=== PATIENT | female | born 1990 | race Caucasian/White ===

== ENCOUNTER 2016-07-11 13:59 | Emergency (ER) | payer MEDICAID, OTHER ==
[2016-07-11 14:42] LABS: BASO % 0.4 % (0.0-1.0); EOS # 0.8 K/mm3 (0.0-0.50); EOS % 12.8 % (0.0-3.0); LARGE UNSTAINED CELL # 0.1 K/mm3 (0.0-0.4); LARGE UNSTAINED CELL % 1.6 % (0.0-4.0); LYMPH # 2.5 K/mm3 (1.5-6.5); LYMPH % 39.3 % (24.0-44.0); MEAN CORPUSCULAR HEMOGLOBIN 29.1 pg (27.0-33.0); MEAN CORPUSCULAR HGB CONC 33.3 g/dl (32.0-36.5); MEAN CORPUSCULAR VOLUME 87.5 fl (80.0-96.0); MONO # 0.2 K/mm3 (0.0-0.8); NEUTROPHILS # 2.6 K/mm3 (1.8-7.7); PLATELET COUNT, AUTOMATED 262 k/mm3 (150-450); RED CELL DISTRIBUTION WIDTH 12.1 % (11.5-14.5); WHITE BLOOD COUNT 6.1 K/mm3 (4.0-10.0)
[2016-07-11 14:59] LABS: ALBUMIN/GLOBULIN RATIO 1.38 (1.00-1.93); ALKALINE PHOSPHATASE 93 U/L (45-117); ALT/SGPT 23 U/L (12-78); AMYLASE 38 U/L (25-115); ANION GAP 5 MEQ/L (8-16); AST/SGOT 12 U/L (15-37); BILIRUBIN,DIRECT < 0.1 MG/DL (0.0-0.2); BILIRUBIN,TOTAL 0.4 MG/DL (0.2-1.0); BLOOD UREA NITROGEN 11 MG/DL (7-18); CARBON DIOXIDE LEVEL 32 MEQ/L (21-32); CHLORIDE LEVEL 105 MEQ/L (98-107); CREATININE FOR GFR 0.83 MG/DL (0.55-1.02); GLOMERULAR FILTRATION RATE > 60.0 (>60); GLUCOSE, FASTING 118 MG/DL (70-105); POTASSIUM SERUM 3.8 MEQ/L (3.5-5.1); SODIUM LEVEL 142 MEQ/L (136-145); TOTAL PROTEIN 6.9 GM/DL (6.4-8.2)
--- NOTE | 2016-07-11 15:42 | EDDOCDS ---
Physician Documentation [facility] Name: Maria Del Rosario Condon Age: 25 yrs Sex: Female : 1990 Arrival Date: 07/11/2016 Time: 13:59 Bed PD Private MD: Other - Complete Info On Cds Disposition: 07/11/16 15:27 Discharged to Home/Self Care. Impression: Upper abdominal pain, unspecified - gastritis vs biliary colic. - Condition is Stable. - Discharge Instructions: Biliary Colic, Gastritis, Adult. - Prescriptions for omeprazole 20 mg Oral capsule,delayed release(DR/EC) - take 1 capsule by ORAL route once daily for 30 days; 30 capsule. Carafate 1 gram Oral Tablet - take 1 tablet by ORAL route 4 times per day take on an empty stomach, beginning on waking and last dose at bedtime; 20 tablet. ZOFRAN ODT 4 mg Oral - dissolve 1 tablet by ORAL route every 8 hours As needed do not chew, do not swallow whole; 10 tablet. - Medication Reconciliation, Local Pharmacy Hours form. - Follow up: Private Physician; When: Call to arrange an appointment; Reason: Recheck today's complaints. Follow up: Emergency Department; When: As needed; Reason: Fever > 102F, Worsening of conditions. - Problem is new. - Symptoms have improved. Historical: - Allergies: no known allergies; - Home Meds: 1. Lexapro 10 mg Oral tab 1 tab once daily - PMHx: Depression; - PSHx: right knee; - Social history: Smoking status: Patient uses tobacco products, current some day smoker. No barriers to communication noted, The patient speaks fluent Lebanese, Speaks appropriately for age. - Family history: Not pertinent. - : The pt / caregiver states he / she is not on anticoagulants. Home medication list is obtained from the patient. - Exposure Risk Screening:: None identified. 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 2 in. (157.48 cm) (R); 15:42 BP 132 / 78; Pulse 68; Resp 18; Temp 97(T); Pulse Ox 99% on R/A; Pain 0/10; rs3 14:01 Body Mass Index 39.32 (97.52 kg, 157.48 cm) elp MDM: 14:15 Misc Documentation Liaison Order ordered. ar2 14:16 Amylase Ordered. EDMS 14:16 Basic Metabolic Profile Ordered. EDMS 14:16 CBC with Diff Ordered. EDMS 14:17 Lipase Ordered. EDMS 14:17 Liver Profile Ordered. EDMS 14:17 NOTHING BY MOUTH+DIET ordered. EDMS 14:20 Financial registration complete. gb 14:21 [facility] Payment Agreement was scanned into [employer] and attached to record. gb 14:52 CBC with Diff Reviewed. ar2 15:08 [facility] Liaison Order complete. jml1 15:10 Basic Metabolic Profile Reviewed. ar2 15:10 Liver Profile Reviewed. ar2 15:10 Amylase Reviewed. ar2 15:10 Lipase Reviewed. ar2 Signatures: Dispatcher MedHost EDMS Christiana Presley, Reg Reg gb Clifford Lezama, RN RN mlb1 Melissa VazquezRN RN ck1 Krishna Pan, PA-C PA-C ar2 Umu Spencer,RN RN rs3 Owen Keane jml1 The chart was reviewed and I authenticate all verbal orders and agree with the evaluation and treatment provided.Attachments: 14:21 [facility] Payment Agreement gb MTDD
--- NOTE | 2016-07-11 15:42 | EDDOCDS ---
Nurse's Notes [facility] Name: Maria Del Rosario Condon Age: 25 yrs Sex: Female : 1990 Arrival Date: 07/11/2016 Time: 13:59 Bed PD Private MD: Other - Complete Info On Cds Diagnosis: Upper abdominal pain, unspecified-gastritis vs biliary colic Presentation: 07/11 14:03 Presenting complaint: Patient states: Not tolerating solids over the past three weeks, mlb1 abdominal pain after eating. Adult Sepsis Screening: The patient does not have new or worsening altered mentation. Patient's respiratory rate is less than 22. Systolic blood pressure is greater than 100. Patient has a qSOFA score of 0- Negative Sepsis Screen. Suicide/Homicide risk assessment- the patient denies having any suicidal and/or homicidal ideations and does not present with any other emotional, behavioral or mental health complaints. Status: Patient is not a customer service representative teller or dependent. Transition of care: patient was not received from another setting of care. 14:03 Acuity: DAYANA Level 3 mlb1 14:03 Method Of Arrival: Walkin/Carried/Asstd mlb1 Triage Assessment: 14:04 General: Appears in no apparent distress, comfortable, Behavior is appropriate for age, mlb1 cooperative. Pain: Denies pain. Pt Declines HIV testing. GI: Reports nausea. 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 Lexapro 10 mg Oral tab 1 tab once daily - PMHx: Depression; - PSHx: right knee; - Social history: Smoking status: Patient uses tobacco products, current some day smoker. No barriers to communication noted, The patient speaks fluent Bahraini, Speaks appropriately for age. - Family history: Not pertinent. - : The pt / caregiver states he / she is not on anticoagulants. Home medication list is obtained from the patient. - Exposure Risk Screening:: None identified. Screenin:25 Screening information is obtained from the patient. Fall risk: No risks identified. ck1 Assistance ADL's: requires no assistance with activities of daily living. Abuse/DV Screen: The patient / caregiver reports he/she is: not in a situation that causes fear, pain or injury. Nutritional screening: No deficits noted. Advance Directives: Currently, there is no health care proxy. home support is adequate. Assessment: 14:25 General: Appears in no apparent distress, comfortable, Behavior is appropriate for age, ck1 cooperative. Pain: Location: abdomen Pain At worst was 7 out of 10 on a pain scale. Aggravated by eating. Respiratory: Respiratory effort is unlabored, Respiratory pattern is regular, symmetrical. GI: Abdomen is non- distended Bowel sounds present X 4 quads. Abd is soft and non tender X 4 quads. Reports nausea, vomiting. Derm: Skin is intact, is healthy with good turgor, Skin is pink, warm & dry. Vital Signs: 14:01 BP 133 / 68; Pulse 62; Resp 18; Temp 98.1(O); Pulse Ox 100% on R/A; Weight 97.52 kg elp (R); Height 5 ft. 2 in. (157.48 cm) (R); 15:42 BP 132 / 78; Pulse 68; Resp 18; Temp 97(T); Pulse Ox 99% on R/A; Pain 0/10; rs3 14:01 Body Mass Index 39.32 (97.52 kg, 157.48 cm) elp Vitals: 14:01 Log In Time: July 11, 2016 at 13:59. [facility] ED Course: 14:01 Patient visited by Bekah Sanchez PCA. elp 14:01 Other - Complete Info On Cds is Private Physician. elp 14:01 Patient moved to Waiting elp 14:02 Patient visited by Bekah Sanchez PCA. elp 14:02 Patient moved to Pre RCE elp 14:03 Patient visited by Clifford Lezama, DEBORAH. mlb1 14:04 Triage Initiated mlb1 14:05 Patient visited by Clifford Lezama, DEBORAH. mlb1 14:05 Krishna Pan [facility]-C [facility]. ar2 14:05 Pennie Shoemaker MD is Attending Physician. ar2 14:05 Patient visited by Krishna Pan PA-C. ar2 14:05 Patient moved to Triage 2 mlb1 14:21 [facility] Payment Agreement was scanned into [employer] and attached to record. gb 14:23 Patient moved to TR2 rs3 14:24 Amylase Sent. ck1 14:24 Basic Metabolic Profile Sent. ck1 14:24 CBC with Diff Sent. ck1 14:24 Lipase Sent. ck1 14:24 Liver Profile Sent. ck1 14:25 The patient / caregiver is instructed regarding the plan of care and ED course. ck1 14:28 Patient name changed from Maria Del Rosario\S\M\S\Cough\S\ to Maria Del Rosario\S\Flora\S\Cough. EDMS 14:45 Patient name changed from Maria Del Rosario\S\Flora\S\Cough\S\ to Maria Del Rosario\S\Flora\S\Taurus. elp 14:45 Patient name changed from Maria Del Rosario\S\Flora\S\Taurus\S\ to Maria Del Rosario\S\Flora\S\Cough. EDMS 14:46 Patient name changed from Maria Del Rosario\S\Flora\S\Cough\S\ to Maria Del Rosario\S\Flora\S\Taurus. elp 14:48 Patient moved to PD jp4 14:55 Patient visited by Melissa Vazquez RN. ck1 15:40 Patient has correct armband on for positive identification. rs3 15:41 No IV's were initiated during this patient's visit. No procedures done that require rs3 assistance. Order Results: Lab Order: Amylase; SPEC'M 07/11/16 14:23 Test: AMYLASE; Value: 38; Range: 25-115; Units: U/L; Status: F Lab Order: Basic Metabolic Profile; SPEC'M 07/11/16 14:23 Test: GLUCOSE, FASTING; Value: 118; Range: 70-105; Abnormal: Above high normal; Units: MG/DL; Status: F Test: BLOOD UREA NITROGEN; Value: 11; Range: 7-18; Units: MG/DL; Status: F Test: CREATININE FOR GFR; Value: 0.83; Range: 0.55-1.02; Units: MG/DL; Status: F Test: GLOMERULAR FILTRATION RATE; Value: > 60.0; Range: >60; Status: F Test: SODIUM LEVEL; Value: 142; Range: 136-145; Units: MEQ/L; Status: F Test: POTASSIUM SERUM; Value: 3.8; Range: 3.5-5.1; Units: MEQ/L; Status: F Test: CHLORIDE LEVEL; Value: 105; Range: 98-107; Units: MEQ/L; Status: F Test: CARBON DIOXIDE LEVEL; Value: 32; Range: 21-32; Units: MEQ/L; Status: F Test: ANION GAP; Value: 5; Range: 8-16; Abnormal: Below low normal; Units: MEQ/L; Status: F Test: CALCIUM LEVEL; Value: 9.0; Range: 8.5-10.1; Units: MG/DL; Status: F Test Note: ; Units are mL/min/1.73 m2 Chronic Kidney Disease Staging per NKF: Stage I & II GFR >=60 Normal to Mildly Decreased Stage III GFR 30-59 Moderately Decreased Stage IV GFR 15-29 Severely Decreased Stage V GFR <15 Very Little GFR Left ESRD GFR <15 on THERMAL INTELLIGENCE ANALYST Lab Order: CBC with Diff; SPEC'M 07/11/16 14:23 Test: WHITE BLOOD COUNT; Value: 6.1; Range: 4.0-10.0; Units: K/mm3; Status: F Test: RED BLOOD COUNT; Value: 4.37; Range: 4.00-5.40; Units: M/mm3; Status: F Test: HEMOGLOBIN; Value: 12.7; Range: 12.0-16.0; Units: g/dl; Status: F Test: HEMATOCRIT; Value: 38.2; Range: 36.0-47.0; Units: %; Status: F Test: MEAN CORPUSCULAR VOLUME; Value: 87.5; Range: 80.0-96.0; Units: fl; Status: F Test: MEAN CORPUSCULAR HEMOGLOBIN; Value: 29.1; Range: 27.0-33.0; Units: pg; Status: F Test: MEAN CORPUSCULAR HGB CONC; Value: 33.3; Range: 32.0-36.5; Units: g/dl; Status: F Test: RED CELL DISTRIBUTION WIDTH; Value: 12.1; Range: 11.5-14.5; Units: %; Status: F Test: PLATELET COUNT, AUTOMATED; Value: 262; Range: 150-450; Units: k/mm3; Status: F Test: NEUTROPHILS %; Value: 42.0; Range: 36.0-66.0; Units: %; Status: F Test: LYMPH %; Value: 39.3; Range: 24.0-44.0; Units: %; Status: F Test: MONO %; Value: 4.0; Range: 0.0-5.0; Units: %; Status: F Test: EOS %; Value: 12.8; Range: 0.0-3.0; Abnormal: Above high normal; Units: %; Status: F Test: BASO %; Value: 0.4; Range: 0.0-1.0; Units: %; Status: F Test: LARGE UNSTAINED CELL %; Value: 1.6; Range: 0.0-4.0; Units: %; Status: F Test: NEUTROPHILS #; Value: 2.6; Range: 1.8-7.7; Units: K/mm3; Status: F Test: LYMPH #; Value: 2.5; Range: 1.5-6.5; Units: K/mm3; Status: F Test: MONO #; Value: 0.2; Range: 0.0-0.8; Units: K/mm3; Status: F Test: EOS #; Value: 0.8; Range: 0.0-0.50; Abnormal: Above high normal; Units: K/mm3; Status: F Test: BASO #; Value: 0.0; Range: 0.0-0.2; Units: K/mm3; Status: F Test: LARGE UNSTAINED CELL #; Value: 0.1; Range: 0.0-0.4; Units: K/mm3; Status: F Lab Order: Lipase; SPEC' 07/11/16 14:23 Test: LIPASE; Value: 163; Range: 73-393; Units: U/L; Status: F Lab Order: Liver Profile; SPEC'M 07/11/16 14:23 Test: AST/SGOT; Value: 12; Range: 15-37; Abnormal: Below low normal; Units: U/L; Status: F Test: ALT/SGPT; Value: 23; Range: 12-78; Units: U/L; Status: F Test: ALKALINE PHOSPHATASE; Value: 93; Range: 45-117; Units: U/L; Status: F Test: BILIRUBIN,TOTAL; Value: 0.4; Range: 0.2-1.0; Units: MG/DL; Status: F Test: BILIRUBIN,DIRECT; Value: < 0.1; Range: 0.0-0.2; Units: MG/DL; Status: F Test: TOTAL PROTEIN; Value: 6.9; Range: 6.4-8.2; Units: GM/DL; Status: F Test: ALBUMIN; Value: 4.0; Range: 3.2-5.2; Units: GM/DL; Status: F Test: ALBUMIN/GLOBULIN RATIO; Value: 1.38; Range: 1.00-1.93; Status: F Outcome: 15:27 Discharge ordered by Provider. ar2 15:39 The following High Risk Discharge criteria are identified: None. Discharged to home rs3 with family. Condition: stable. Discharge instructions given to patient, Instructed on discharge instructions, follow up and referral plans. medication usage, Demonstrated understanding of instructions, medications, Pt was receptive of discharge instructions/ teaching. Prescriptions given X 3. No special radiology studies were completed. 15:41 Discharge Assessment: patient administered narcotics - no. Property :Personal rs3 belongings accompany Pt. 15:42 Patient left the ED. rs3 Signatures: Dispatcher MedHost EDMS Christiana Presley, Reg Reg Clifford Ashley RN RN mlb1 Melissa VazquezRN RN ck1 Krishna Pan PA-C PA-C ar2 Umu Spencer,RN RN rs3 Patcheldon, Bekah, OFFICE SUPPORT SPECIALIST OFFICE SUPPORT SPECIALIST elp Pignone, Ulices jp4 MTDD
--- NOTE | 2016-07-13 16:44 | EDDOCDS ---
Physician Documentation [facility] Name: Maria Del Rosario Condon Age: 25 yrs Sex: Female : 1990 Arrival Date: 07/11/2016 Time: 13:59 Bed PD Private MD: Other - Complete Info On Cds Disposition: 07/11/16 15:27 Discharged to Home/Self Care. Impression: Upper abdominal pain, unspecified - gastritis vs biliary colic. - Condition is Stable. - Discharge Instructions: Biliary Colic, Gastritis, Adult. - Prescriptions for omeprazole 20 mg Oral capsule,delayed release(DR/EC) - take 1 capsule by ORAL route once daily for 30 days; 30 capsule. Carafate 1 gram Oral Tablet - take 1 tablet by ORAL route 4 times per day take on an empty stomach, beginning on waking and last dose at bedtime; 20 tablet. ZOFRAN ODT 4 mg Oral - dissolve 1 tablet by ORAL route every 8 hours As needed do not chew, do not swallow whole; 10 tablet. - Medication Reconciliation, Local Pharmacy Hours form. - Follow up: Private Physician; When: Call to arrange an appointment; Reason: Recheck today's complaints. Follow up: Emergency Department; When: As needed; Reason: Fever > 102F, Worsening of conditions. - Problem is new. - Symptoms have improved. Historical: - Allergies: no known allergies; - Home Meds: 1. Lexapro 10 mg Oral tab 1 tab once daily - PMHx: Depression; - PSHx: right knee; - Social history: Smoking status: Patient uses tobacco products, current some day smoker. No barriers to communication noted, The patient speaks fluent Bahraini, Speaks appropriately for age. - Family history: Not pertinent. - : The pt / caregiver states he / she is not on anticoagulants. Home medication list is obtained from the patient. - Exposure Risk Screening:: None identified. 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 2 in. (157.48 cm) (R); 15:42 BP 132 / 78; Pulse 68; Resp 18; Temp 97(T); Pulse Ox 99% on R/A; Pain 0/10; rs3 14:01 Body Mass Index 39.32 (97.52 kg, 157.48 cm) elp MDM: 14:15 Misc Family Lawyer Order ordered. ar2 14:16 Amylase Ordered. EDMS 14:16 Basic Metabolic Profile Ordered. EDMS 14:16 CBC with Diff Ordered. EDMS 14:17 Lipase Ordered. EDMS 14:17 Liver Profile Ordered. EDMS 14:17 NOTHING BY MOUTH+DIET ordered. EDMS 14:20 Financial registration complete. gb 14:21 [facility] Payment Agreement was scanned into [employer] and attached to record. gb 14:52 CBC with Diff Reviewed. ar2 15:08 Misc Family Lawyer Order complete. jml1 15:10 Basic Metabolic Profile Reviewed. ar2 15:10 Liver Profile Reviewed. ar2 15:10 Amylase Reviewed. ar2 15:10 Lipase Reviewed. ar2 21:48 T-Sheet-- Draft Copy was scanned into [employer] and attached to record. klr Signatures: Dispatcher [employer] EDMS Christiana Presley, Reg Reg gb Clifford Lezama RN RN mlb1 Melissa VazquezRN RN ck1 Krishna Pan, PAJorge PALoisC ar2 Umu Spencer,RN RN rs3 Owen Keane jml1 Ida Miller klr The chart was reviewed and I authenticate all verbal orders and agree with the evaluation and treatment provided.Attachments: 14:21 [facility] Payment Agreement gb 21:48 T-Sheet-- Draft Copy klr Chart Complete MTDD
--- NOTE | 2016-07-13 16:44 | EDDOCDS ---
Physician Documentation [facility] Name: Maria Del Rosario Condon Age: 25 yrs Sex: Female : 1990 Arrival Date: 07/11/2016 Time: 13:59 Bed PD Private MD: Other - Complete Info On Cds Disposition: 07/11/16 15:27 Discharged to Home/Self Care. Impression: Upper abdominal pain, unspecified - gastritis vs biliary colic. - Condition is Stable. - Discharge Instructions: Biliary Colic, Gastritis, Adult. - Prescriptions for omeprazole 20 mg Oral capsule,delayed release(DR/EC) - take 1 capsule by ORAL route once daily for 30 days; 30 capsule. Carafate 1 gram Oral Tablet - take 1 tablet by ORAL route 4 times per day take on an empty stomach, beginning on waking and last dose at bedtime; 20 tablet. ZOFRAN ODT 4 mg Oral - dissolve 1 tablet by ORAL route every 8 hours As needed do not chew, do not swallow whole; 10 tablet. - Medication Reconciliation, Local Pharmacy Hours form. - Follow up: Private Physician; When: Call to arrange an appointment; Reason: Recheck today's complaints. Follow up: Emergency Department; When: As needed; Reason: Fever > 102F, Worsening of conditions. - Problem is new. - Symptoms have improved. Historical: - Allergies: no known allergies; - Home Meds: 1. Lexapro 10 mg Oral tab 1 tab once daily - PMHx: Depression; - PSHx: right knee; - Social history: Smoking status: Patient uses tobacco products, current some day smoker. No barriers to communication noted, The patient speaks fluent Kittitian, Speaks appropriately for age. - Family history: Not pertinent. - : The pt / caregiver states he / she is not on anticoagulants. Home medication list is obtained from the patient. - Exposure Risk Screening:: None identified. 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 2 in. (157.48 cm) (R); 15:42 BP 132 / 78; Pulse 68; Resp 18; Temp 97(T); Pulse Ox 99% on R/A; Pain 0/10; rs3 14:01 Body Mass Index 39.32 (97.52 kg, 157.48 cm) elp MDM: 14:15 Misc Dining Room Captain Order ordered. ar2 14:16 Amylase Ordered. EDMS 14:16 Basic Metabolic Profile Ordered. EDMS 14:16 CBC with Diff Ordered. EDMS 14:17 Lipase Ordered. EDMS 14:17 Liver Profile Ordered. EDMS 14:17 NOTHING BY MOUTH+DIET ordered. EDMS 14:20 Financial registration complete. gb 14:21 [facility] Payment Agreement was scanned into [employer] and attached to record. gb 14:52 CBC with Diff Reviewed. ar2 15:08 Misc Dining Room Captain Order complete. jml1 15:10 Basic Metabolic Profile Reviewed. ar2 15:10 Liver Profile Reviewed. ar2 15:10 Amylase Reviewed. ar2 15:10 Lipase Reviewed. ar2 21:48 T-Sheet-- Draft Copy was scanned into Agenda and attached to record. klr Signatures: Dispatcher [employer] EDMS Christiana Presley, Reg Reg gb Clifford Lezama RN RN mlb1 Melissa VazquezRN RN ck1 Krishna Pan, PAJorge PALoisC ar2 Umu Spencer,RN RN rs3 Owen Keane jml1 Ida Miller klr The chart was reviewed and I authenticate all verbal orders and agree with the evaluation and treatment provided.Attachments: 14:21 [facility] Payment Agreement gb 21:48 T-Sheet-- Draft Copy klr Chart Complete MTDD
--- NOTE | 2016-07-13 16:45 | EDDOCDS ---
Nurse's Notes [facility] Name: Maria Del Rosario Condon Age: 25 yrs Sex: Female : 1990 Arrival Date: 07/11/2016 Time: 13:59 Bed PD Private MD: Other - Complete Info On Cds Diagnosis: Upper abdominal pain, unspecified-gastritis vs biliary colic Presentation: 07/11 14:03 Presenting complaint: Patient states: Not tolerating solids over the past three weeks, mlb1 abdominal pain after eating. Adult Sepsis Screening: The patient does not have new or worsening altered mentation. Patient's respiratory rate is less than 22. Systolic blood pressure is greater than 100. Patient has a qSOFA score of 0- Negative Sepsis Screen. Suicide/Homicide risk assessment- the patient denies having any suicidal and/or homicidal ideations and does not present with any other emotional, behavioral or mental health complaints. 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 Transition of care: patient was not received from another setting of care. 14:03 Acuity: DAYANA Level 3 mlb1 14:03 Method Of Arrival: Walkin/Carried/Asstd mlb1 Triage Assessment: 14:04 General: Appears in no apparent distress, comfortable, Behavior is appropriate for age, mlb1 cooperative. Pain: Denies pain. Pt Declines HIV testing. GI: Reports nausea. 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 Lexapro 10 mg Oral tab 1 tab once daily - PMHx: Depression; - PSHx: right knee; - Social history: Smoking status: Patient uses tobacco products, current some day smoker. No barriers to communication noted, The patient speaks fluent [place], Speaks appropriately for age. - Family history: Not pertinent. - : The pt / caregiver states he / she is not on anticoagulants. Home medication list is obtained from the patient. - Exposure Risk Screening:: None identified. Screenin:25 Screening information is obtained from the patient. Fall risk: No risks identified. ck1 Assistance ADL's: requires no assistance with activities of daily living. Abuse/DV Screen: The patient / caregiver reports he/she is: not in a situation that causes fear, pain or injury. Nutritional screening: No deficits noted. Advance Directives: Currently, there is no health care proxy. home support is adequate. Assessment: 14:25 General: Appears in no apparent distress, comfortable, Behavior is appropriate for age, ck1 cooperative. Pain: Location: abdomen Pain At worst was 7 out of 10 on a pain scale. Aggravated by eating. Respiratory: Respiratory effort is unlabored, Respiratory pattern is regular, symmetrical. GI: Abdomen is non- distended Bowel sounds present X 4 quads. Abd is soft and non tender X 4 quads. Reports nausea, vomiting. Derm: Skin is intact, is healthy with good turgor, Skin is pink, warm & dry. Vital Signs: 14:01 BP 133 / 68; Pulse 62; Resp 18; Temp 98.1(O); Pulse Ox 100% on R/A; Weight 97.52 kg elp (R); Height 5 ft. 2 in. (157.48 cm) (R); 15:42 BP 132 / 78; Pulse 68; Resp 18; Temp 97(T); Pulse Ox 99% on R/A; Pain 0/10; rs3 14:01 Body Mass Index 39.32 (97.52 kg, 157.48 cm) elp Vitals: 14:01 Log In Time: July 11, 2016 at 13:59. [facility] ED Course: 14:01 Patient visited by Bekah Sanchez PCA. elp 14:01 Other - Complete Info On Cds is Private Physician. elp 14:01 Patient moved to Waiting elp 14:02 Patient visited by Bekah Sanchez PCA. elp 14:02 Patient moved to Pre RCE elp 14:03 Patient visited by Clifford Lezama, DEBORAH. mlb1 14:04 Triage Initiated mlb1 14:05 Patient visited by Clifford Lezama, DEBORAH. mlb1 14:05 [facility] ar2 14:05 Pennie Shoemaker MD is Attending Physician. ar2 14:05 Patient visited by Krishna Pan PA-C. ar2 14:05 Patient moved to Triage 2 mlb1 14:21 [facility] Payment Agreement was scanned into [employer] and attached to record. gb 14:23 Patient moved to TR2 rs3 14:24 Amylase Sent. ck1 14:24 Basic Metabolic Profile Sent. ck1 14:24 CBC with Diff Sent. ck1 14:24 Lipase Sent. ck1 14:24 Liver Profile Sent. ck1 14:25 The patient / caregiver is instructed regarding the plan of care and ED course. ck1 14:28 Patient name changed from Maria Del Rosario\S\M\S\Cough\S\ to Maria Del Rosario\S\Flora\S\Cough. EDMS 14:45 Patient name changed from Maria Del Rosario\S\Flora\S\Cough\S\ to Maria Del Rosario\S\Flora\S\Taurus. elp 14:45 Patient name changed from Maria Del Rosario\S\Flora\S\Taurus\S\ to Maria Del Rosario\S\Flora\S\Cough. EDMS 14:46 Patient name changed from Maria Del Rosario\S\Flora\S\Cough\S\ to Maria Del Rosario\S\Flora\S\Taurus. elp 14:48 Patient moved to PD jp4 14:55 Patient visited by Melissa Vazquez RN. ck1 15:40 Patient has correct armband on for positive identification. rs3 15:41 No IV's were initiated during this patient's visit. No procedures done that require rs3 assistance. 21:48 T-Sheet-- Draft Copy was scanned into [employer] and attached to record. klr Order Results: Lab Order: Amylase; SPEC'M 07/11/16 14:23 Test: AMYLASE; Value: 38; Range: 25-115; Units: U/L; Status: F Lab Order: Basic Metabolic Profile; SPEC'M 07/11/16 14:23 Test: GLUCOSE, FASTING; Value: 118; Range: 70-105; Abnormal: Above high normal; Units: MG/DL; Status: F Test: BLOOD UREA NITROGEN; Value: 11; Range: 7-18; Units: MG/DL; Status: F Test: CREATININE FOR GFR; Value: 0.83; Range: 0.55-1.02; Units: MG/DL; Status: F Test: GLOMERULAR FILTRATION RATE; Value: > 60.0; Range: >60; Status: F Test: SODIUM LEVEL; Value: 142; Range: 136-145; Units: MEQ/L; Status: F Test: POTASSIUM SERUM; Value: 3.8; Range: 3.5-5.1; Units: MEQ/L; Status: F Test: CHLORIDE LEVEL; Value: 105; Range: 98-107; Units: MEQ/L; Status: F Test: CARBON DIOXIDE LEVEL; Value: 32; Range: 21-32; Units: MEQ/L; Status: F Test: ANION GAP; Value: 5; Range: 8-16; Abnormal: Below low normal; Units: MEQ/L; Status: F Test: CALCIUM LEVEL; Value: 9.0; Range: 8.5-10.1; Units: MG/DL; Status: F Test Note: ; Units are mL/min/1.73 m2 Chronic Kidney Disease Staging per NKF: Stage I & II GFR >=60 Normal to Mildly Decreased Stage III GFR 30-59 Moderately Decreased Stage IV GFR 15-29 Severely Decreased Stage V GFR <15 Very Little GFR Left ESRD GFR <15 on [employer] Lab Order: CBC with Diff; SPEC'M 07/11/16 14:23 Test: WHITE BLOOD COUNT; Value: 6.1; Range: 4.0-10.0; Units: K/mm3; Status: F Test: RED BLOOD COUNT; Value: 4.37; Range: 4.00-5.40; Units: M/mm3; Status: F Test: HEMOGLOBIN; Value: 12.7; Range: 12.0-16.0; Units: g/dl; Status: F Test: HEMATOCRIT; Value: 38.2; Range: 36.0-47.0; Units: %; Status: F Test: MEAN CORPUSCULAR VOLUME; Value: 87.5; Range: 80.0-96.0; Units: fl; Status: F Test: MEAN CORPUSCULAR HEMOGLOBIN; Value: 29.1; Range: 27.0-33.0; Units: pg; Status: F Test: MEAN CORPUSCULAR HGB CONC; Value: 33.3; Range: 32.0-36.5; Units: g/dl; Status: F Test: RED CELL DISTRIBUTION WIDTH; Value: 12.1; Range: 11.5-14.5; Units: %; Status: F Test: PLATELET COUNT, AUTOMATED; Value: 262; Range: 150-450; Units: k/mm3; Status: F Test: NEUTROPHILS %; Value: 42.0; Range: 36.0-66.0; Units: %; Status: F Test: LYMPH %; Value: 39.3; Range: 24.0-44.0; Units: %; Status: F Test: MONO %; Value: 4.0; Range: 0.0-5.0; Units: %; Status: F Test: EOS %; Value: 12.8; Range: 0.0-3.0; Abnormal: Above high normal; Units: %; Status: F Test: BASO %; Value: 0.4; Range: 0.0-1.0; Units: %; Status: F Test: LARGE UNSTAINED CELL %; Value: 1.6; Range: 0.0-4.0; Units: %; Status: F Test: NEUTROPHILS #; Value: 2.6; Range: 1.8-7.7; Units: K/mm3; Status: F Test: LYMPH #; Value: 2.5; Range: 1.5-6.5; Units: K/mm3; Status: F Test: MONO #; Value: 0.2; Range: 0.0-0.8; Units: K/mm3; Status: F Test: EOS #; Value: 0.8; Range: 0.0-0.50; Abnormal: Above high normal; Units: K/mm3; Status: F Test: BASO #; Value: 0.0; Range: 0.0-0.2; Units: K/mm3; Status: F Test: LARGE UNSTAINED CELL #; Value: 0.1; Range: 0.0-0.4; Units: K/mm3; Status: F Lab Order: Lipase; SPEC'M 07/11/16 14:23 Test: LIPASE; Value: 163; Range: 73-393; Units: U/L; Status: F Lab Order: Liver Profile; SPEC'M 07/11/16 14:23 Test: AST/SGOT; Value: 12; Range: 15-37; Abnormal: Below low normal; Units: U/L; Status: F Test: ALT/SGPT; Value: 23; Range: 12-78; Units: U/L; Status: F Test: ALKALINE PHOSPHATASE; Value: 93; Range: 45-117; Units: U/L; Status: F Test: BILIRUBIN,TOTAL; Value: 0.4; Range: 0.2-1.0; Units: MG/DL; Status: F Test: BILIRUBIN,DIRECT; Value: < 0.1; Range: 0.0-0.2; Units: MG/DL; Status: F Test: TOTAL PROTEIN; Value: 6.9; Range: 6.4-8.2; Units: GM/DL; Status: F Test: ALBUMIN; Value: 4.0; Range: 3.2-5.2; Units: GM/DL; Status: F Test: ALBUMIN/GLOBULIN RATIO; Value: 1.38; Range: 1.00-1.93; Status: F Outcome: 15:27 Discharge ordered by Provider. ar2 15:39 The following High Risk Discharge criteria are identified: None. Discharged to home rs3 with family. Condition: stable. Discharge instructions given to patient, Instructed on discharge instructions, follow up and referral plans. medication usage, Demonstrated understanding of instructions, medications, Pt was receptive of discharge instructions/ teaching. Prescriptions given X 3. No special radiology studies were completed. 15:41 Discharge Assessment: patient administered narcotics - no. Property :Personal rs3 belongings accompany Pt. 15:42 Patient left the ED. rs3 Signatures: Dispatcher [employer] EDMS Christiana Presley, Reg Reg Clifford Ashley RN RN mlb1 Melissa Vazquez RN RN ck1 Krishna Pan PA-C PAJorge christy2 Umu Spencer RN RN rs3 Daniel, Bekah, GATE TECHNICIAN GATE TECHNICIAN elp Pignone, Ulices jp4 Ida Miller Chart Complete MTDD
== END 2016-07-11 15:42 | disposition home or self-care (01) ==
LOC: M ED 13:59
DX: K80.50 Calculus of bile duct without cholangitis or cholecystitis without obstruction (principal); F32.9 Major depressive disorder, single episode, unspecified; Z79.899 Other long term (current) drug therapy; F17.210 Nicotine dependence, cigarettes, uncomplicated